=== PATIENT | male | born 1990 | race African-American/Black ===

== ENCOUNTER → 2018-01-17 | Outpatient (CLI) | payer BC ==
--- NOTE | 2018-01-17 15:06 | RADIOLOGY REPORT (SQ) ---
EXAM DESCRIPTION: U/S RETROPERITON (RENAL/AORTA) COMPLETED DATE/TIME: 01/17/2018 1:49 pm REASON FOR STUDY: GROSS HEMATURIA R31.0 GROSS HEMATURIA COMPARISON: None. TECHNIQUE: Dynamic and static grayscale images acquired of the kidneys and bladder and recorded on P ACS. Additional selected color Doppler and spectral images recorded. LIMITATIONS: None. FINDINGS: RIGHT KIDNEY: Normal size, 11 cm in length. Normal echogenicity. No solid or suspicious ma sses. No hydronephrosis. No calcifications. LEFT KIDNEY: Normal size, 11 cm in length. Normal echogenicity. No solid or suspicious masses. No hy dronephrosis. No calcifications. BLADDER: No masses. Partially decompressed, patient voided prior to the exam. No bladder calculi ar e identified OTHER FINDINGS: No other significant finding. IMPRESSION: NORMAL RENAL AND BLADDER ULTRASOUND. TECHNICAL DOCUMENTATION: JOB ID: [id number] [employer]- All Rights Reserved Reading location - IP/workstation name: [email or web address]
== END ==
LOC: RAD 12:57
PROVIDERS: ATTEND Urology
DX: R31.0 Gross hematuria (principal)
CPT/HCPCS: 76770